=== PATIENT | female | born 2000 | race Two or more races ===

== ENCOUNTER 2024-06-20 22:27 | Emergency (ER) | payer BC ==
[2024-06-20 22:46] VITALS: BP 127/71; PULSE 100; RESP 18; TEMP 99.1; BMI 22.4
[2024-06-20] MEDS ORDERED: ALBUTEROL SO4 2.5/IPRATROPIUM 0.5 INH SOL 3 ML VIAL.NEB. NEB ONE (22:46)
[2024-06-20] MEDS: ALBUTEROL SO4 2.5/IPRATROPIUM 0.5 INH SOL 3 ML VIAL.NEB. NEB STA (22:48)
== END 2024-06-20 23:16 | disposition home or self-care (01) ==
LOC: FER 22:27
DX: R00.1 Bradycardia, unspecified (principal)
CPT/HCPCS: 99285-25